=== PATIENT | male | born 1930 | race Caucasian/White ===

== ENCOUNTER → 2016-07-19 | Outpatient (CLI) | payer MEDICARE, BC ==
[~2016-07-19] MED LIST: ASPI-676; ATOR10TA23; CALC-600; LISI-523; METF500T4; PANT20TA2
--- NOTE | 2016-07-19 16:38 | RADRPT ---
PROCEDURE: US Lower extremity Venous. CLINICAL INDICATION: Right lower extremity swelling TECHNIQUE: Multiple sonographic images of the bilateral lower extremity deep venous system was obt ained utilizing grayscale, color-flow, compressive sonography and doppler imaging with augmentation. COMPARISON: None. FINDINGS: There is normal compressibility / flow within the bilateral common femoral, femoral and popliteal ve ins. The visualized deep veins of the calf are unremarkable. RPTAT:HJJR IMPRESSION: No sonographic evidence for deep venous thrombosis of either lower extremity. Physician Arlette Date Time Electronically viewed and signed by Physician Arlette on 07/19/2016 16:37 /
== END | disposition home or self-care (01) ==
LOC: VAS 10:50
PROVIDERS: ATTEND Internal Medicine
DX: R60.0 Localized edema (principal)
CPT/HCPCS: 93970

== ENCOUNTER 2016-11-28 20:17 | Inpatient (IN) | payer MEDICARE, BC ==
[~2016-11-28] VITALS: Ht 167.6 cm; Wt 78.3 kg
[2016-11-28] MEDS ORDERED: DIPHTH/TET/ACEL PERTUSS (ADULT) 0.5 ML VIAL IM* ONE (20:30)
--- NOTE | 2016-11-28 21:40 | RADRPT ---
PROCEDURE: CT Brain without contrast. CLINICAL INDICATION: Fall. Laceration. TECHNIQUE: A multiplanar CT of the brain was performed on a CT scanner utilizing axial imaging fro m the skull base through the vertex without IV contrast. The CTDIvol is 44.46 mGy and the DLP is 72 0.23 mGycm. One or more of the following dose reduction techniques were utilized: Automated exposu re control, adjustment of the mA and/or kV according to patient size, use of iterative reconstructio n technique. COMPARISON: CT brain 04/24/12 FINDINGS: Subarachnoid blood interdigitating within the right precentral sulcus and inferiorly along the front al operculum compatible with recent trauma. Moderate to large right parietal occipital scalp hemato ma and skin laceration. No evidence of acute subdural hematoma. 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 No calvarial fracture. Patchy periventricular of the hypo attenuation compatible with sequelae of chronic microvascular isc hemic injury. Focal parietal atrophy bilaterally right greater than left. Mild generalized volume loss. The basal cisterns, posterior fossa contents, brainstem, craniocervical junction, orbits, pituitary axis, paranasal sinuses, mastoid air cells, and calvarium are unremarkable. IMPRESSION: 1. Subarachnoid blood in the jejunum within the right precentral sulcus and inferiorly along the ri ght frontal operculum compatible with recent trauma. No acute subdural hematoma or parenchymal cont usion. No underlying calvarial fracture. 2. Prominent CSF space of the right the cerebellar hemisphere most compatible with the chronic subd ural hematoma/hygroma or arachnoid cyst. 3. Bilateral focal parietal atrophy with generalized volume loss. Results were discussed with Angelique Bolivar 11/28/2016 9:36:01 PM . RPTAT:AAJJ Physician Cierra Date Time Electronically viewed and signed by Physician Cierra on 11/28/2016 21:39 ASHISH/
[2016-11-28] MEDS ORDERED: IOHEXOL 100 ML ONE (22:03)
[2016-11-28] MEDS ORDERED: SOD CHLORIDE 0.9% 100 ML ONE (22:03)
[2016-11-28] MEDS ORDERED: METF500T4 PO (22:08)
[2016-11-28] MEDS ORDERED: AMLO2.5T78 PO (22:09)
--- NOTE | 2016-11-28 22:09 | RADRPT ---
PROCEDURE: XR Hip. CLINICAL INDICATION: Left hip pain. TECHNIQUE: AP and frog lateral views of the left hip were performed. COMPARISON: None. FINDINGS: There is normal mineralization and alignment. No fracture or osseous lesion is identified. There are normal joints without evidence of arthritis or effusion. Enthesopathic changes at the superior ante rior iliac crest, the inferior pubic rami, and at the inferior greater trochanter. The soft tissues are unremarkable. IMPRESSION: No acute fracture. RPTAT: UU Physician Jessie Date Time Electronically viewed and signed by Physician Jessie on 11/28/2016 22:09 RS/
[2016-11-28] MEDS ORDERED: PANT40TA4 PO (22:10)
[2016-11-28] MEDS ORDERED: ATOR10TA65 PO (22:10)
[2016-11-28] MEDS ORDERED: LOSA100T7 PO (22:10)
[2016-11-28] MEDS ORDERED: ASPI-664 PO (22:11)
[2016-11-28] MEDS ORDERED: FURO40TA4 PO (22:11)
[2016-11-28 22:23] LABS: WHITE BLOOD COUNT 12.1 10^3/ul (4.8-10.8)
[2016-11-28 22:24] LABS: BASOPHILS % 0.2 % (0.0-2.0); EOSINOPHILS % 0.2 % (0.0-7.0); HEMATOCRIT 38.8 % (42.0-52.0); HEMOGLOBIN 12.9 g/dl (14.0-18.0); LYMPHOCYTES # 0.7 10^3/ul (0.8-2.9); LYMPHOCYTES % 5.4 % (15.0-51.0); MEAN CORPUSCULAR HEMOGLOBIN 28.7 pg (29.0-33.0); MEAN CORPUSCULAR HGB CONC 33.2 g/dl (32.0-37.0); MEAN CORPUSCULAR VOLUME 86.4 fl (82.0-101.0); MEAN PLATELET VOLUME 11.2 fl (7.4-10.4); MONOCYTE # 0.6 10^3/ul (0.3-0.9); MONOCYTES % 5.3 % (0.0-11.0); NEUTROPHIL # 10.7 10^3/ul (1.6-7.5); NEUTROPHILS % 88.2 % (39.0-77.0); PLATELET COUNT 132 10^3/UL (140-415); POSITIVE DIFF @See below; RED BLOOD COUNT 4.49 10^6/ul (4.70-6.10); RED CELL DISTRIBUTION WIDTH 13.5 % (11.5-14.5)
[2016-11-28] MEDS ORDERED: ACETAMINOPHEN 325 MG TAB PO PRN (22:30)
[2016-11-28] MEDS ORDERED: ONDANSETRON 4 MG INJ IV PRN (22:30)
[2016-11-28 22:37] LABS: INR 1.03; PROTIME 13.5 Sec (12.2-14.2); PT RATIO 1.1
[2016-11-28 22:38] LABS: PARTIAL THROMBOPLASTIN TIME 31.3 Sec (25.0-35.0)
--- NOTE | 2016-11-28 22:39 | ERA ---
ER Documentation Chief Complaint Date/Time DATE: 11/28/16 TIME: 22:34 Chief Complaint glf; head lac; no ko; HPI This is an 86-year-old male who presents to the emergency room after being brought in by EMS for a ground-level fall. The patient states that he was walking up the steps to his home and he lost his balance and fell backwards. The patient states that he fell down 3 steps and did hit his head on the ground and on the fence leading to his status. He denies any loss of consciousness. He does state that he was bleeding from the right side of his head and does state that he takes a baby aspirin a day. The patient denies any numbness or tingling or any pain in his neck. The patient came to the ER today for evaluation. ROS All systems reviewed and are negative except as per history of present illness. Medications Home Meds Reported Medications Aspirin* (Aspirin* EC) 81 Mg Tablet., 81 MG PO DAILY, TAB 11/28/16 Furosemide* (Furosemide*) 40 Mg Tablet, 40 MG PO DAILY, TAB 11/28/16 Losartan Potassium* (Losartan Potassium*) 100 Mg Tablet, 100 MG PO DAILY, TAB 11/28/16 Atorvastatin Calcium (Atorvastatin Calcium) 10 Mg Tablet, 10 MG PO QHS, #30 TAB 11/28/16 Pantoprazole* (Pantoprazole*) 40 Mg Tablet., 40 MG PO DAILY, TAB 11/28/16 Amlodipine Besylate* (Amlodipine Besylate*) 2.5 Mg Tablet, 2.5 MG PO DAILY, #30 TAB 11/28/16 Metformin Hcl* (Metformin Hcl*) 500 Mg Tablet, 500 MG PO WITH MEALS BEDTIME, # 120 TAB qid 11/28/16 Discontinued Reported Medications Calcium (Calcium) 500 Mg Tablet 04/24/12 Aspirin (Kaley Child) 81 Mg Chew 04/24/12 Pantoprazole* (Protonix*) 20 Mg Tablet. 04/24/12 Atorvastatin (Lipitor) 10 Mg Tablet 04/24/12 Metformin* (Glucophage*) 500 Mg Tab 04/24/12 Lisinopril* (Zestril*) 5 Mg Tablet 04/24/12 Allergies Allergies: Coded Allergies: erythromycin base (Verified Allergy, Mild, 11/28/16) morphine (Verified Allergy, Mild, 7/27/17) PMhx/Soc History of Surgery: Yes (Prostate. Cataract, tonsillitis) Anesthesia Reaction: No Hx Neurological Disorder: No Hx Respiratory Disorders: No Hx Cardiac Disorders: No Hx Psychiatric Problems: No Hx Miscellaneous Medical Probl: Yes (HTN, Diabetes) Hx Alcohol Use: No Hx Substance Use: No Hx Tobacco Use: No Smoking Status: Never smoker Physical Exam Vitals Vital Signs Date Time Temp Pulse Resp B/P Pulse Ox O2 Delivery O2 Flow Rate FiO2 11/28/16 22:17 Nasal Cannula 2 11/28/16 21:57 71 18 165/77 97 Room Air 11/28/16 20:25 97.6 88 18 182/93 99 Physical Exam INITIAL VITAL SIGNS: Reviewed by me GENERAL: The patient is well developed and appropriate for usual state of health in no apparent distress HEENT: Right temporal laceration 2 cm in length, no depressed skull fracture, pupils equal, round, and reactive to light. EOMI. There is no scleral icterus. NECK: C-spine is soft and supple, there is no meningismus. There is no cervical lymphadenopathy. LUNGS: Clear to auscultation bilaterally. There are no rales, wheezes or rhonchi. HEART: Regular rate and rhythm, no murmurs, clicks, rubs or gallops. ABDOMEN: Soft, non-tender, non-distended. There are bowel sounds in all four quadrants. No rebound or guarding. EXTREMITIES: There is no peripheral cyanosis or edema. No focal swelling or erythema. NEUROLOGICAL: The patient moves all four extremities with 5/5 strength. Cranial nerves II - XII are intact. Normal gait. Alert and oriented to person place and time, no focal neurological deficits SKIN: There is no apparent rash or petechiae. Muscular skeletal: Tender to palpation over the left ASIS, no shortening of the lower externally HEME/LYMPHATIC: There is no evidence of excessive bruising or lymphedema. PSYCHIATRIC: The patient does not appear anxious or depressed. Result Diagram: 11/28/16 2200 Results 24 hrs Laboratory Tests Test 11/28/16 22:00 White Blood Count 12.110^3/ul Red Blood Count 4.4910^6/ul Hemoglobin 12.9g/dl Hematocrit 38.8% Mean Corpuscular Volume 86.4fl Mean Corpuscular Hemoglobin 28.7pg Mean Corpuscular Hemoglobin Concent 33.2g/dl Red Cell Distribution Width 13.5% Platelet Count 12640^3/UL Mean Platelet Volume 11.2fl Neutrophils % 88.2% Lymphocytes % 5.4% Monocytes % 5.3% Eosinophils % 0.2% Basophils % 0.2% Nucleated Red Blood Cells % 0.0/100WBC Neutrophils # 10.710^3/ul Lymphocytes # 0.710^3/ul Monocytes # 0.610^3/ul Eosinophils # 0.010^3/ul Basophils # 0.010^3/ul Nucleated Red Blood Cells # 0.010^3/ul Current Medications Medications (Trade) Dose Ordered Sig/Sera Route PRN Reason Start Time Stop Time Status Last Admin Dose Admin Diphtheria/ Tetanus/Acell Pertussis (Adacel) 0.5 ml ONCE ONCE IM* 11/28/16 20:30 11/28/16 20:31 DC 11/28/16 20:49 IV Flush 10 ml 10 ml STK-MED ONCE .ROUTE 11/28/16 22:03 11/28/16 22:04 DC Sodium Chloride 100 ml @ ud STK-MED ONCE .ROUTE 11/28/16 22:03 11/28/16 22:04 DC Iohexol (Omnipaque) 100 ml @ ud STK-MED ONCE .ROUTE 11/28/16 22:03 11/28/16 22:04 DC Ondansetron HCl (Zofran Inj) 4 mg ER BRIDGE PRN IV NAUSEA AND/OR VOMITING 11/28/16 22:30 11/29/16 22:29 Acetaminophen (Tylenol Tab) 650 mg ER BRIDGE PRN PO MILD PAIN/FEVER 11/28/16 22:30 11/29/16 22:29 Procedures/MDM EKG: Rate/Rhythm: [Normal Sinus Rhythm] QRS, ST, T-waves: [No changes consistent w/ acute ischemia] Impression: [No evidence of ischemia or arrhythmia] Chest X-ray 1V Interpreted by me: Soft Tissue: No acute abnormalities Bones: No acute abnormalities Mediastinum/Cardiac Silhouette/Lungs: [No acute abnormalities] X-ray Hip 2V Interpreted by me: Bones: [No fracture] Joints: [No dislocation] Foreign body: [None] CT brain: 1. Subarachnoid blood in the jejunum within the right precentral sulcus and inferiorly along the right frontal operculum compatible with recent trauma. No acute subdural hematoma or parenchymal contusion. No underlying calvarial fracture. 2. Prominent CSF space of the right the cerebellar hemisphere most compatible with the chronic subdural hematoma/hygroma or arachnoid cyst. 3. Bilateral focal parietal atrophy with generalized volume loss. CTA brain: Pending This is an 86-year-old male who presents to the emergency room for evaluation of a scalp laceration after a fall down 3 steps at home. There was no loss of consciousness. The patient did have a 2 cm laceration over the right temporal region of his scalp. The patient did undergo a CT of the brain which demonstrated a right-sided traumatic subarachnoid hemorrhage. This patient is neurologically intact. He has no focal neurological deficits. I did consult our neurosurgeon stream control officer nick, Dr. Montano who states to obtain a CT angiography of the brain. He states that he will evaluate this patient and there is no need for emergent intervention at this time however he would like the results of the CTA. I have contacted this patient's primary care physician , Dr. Segura and I have presented this case to him. He is in agreement with the plan for admission at this time and would also like to be notified of the CTA brain results. The patient and the patient's family members were at bedside are aware of this patient's CT results. This patient will be placed in for admission at this time on the telemetry floor pending the results of his CTA. Results of the CTA will be signed out to oncoming physician Dr. crow. Critical Care: Excluding all billable procedures Time: 39 minutes Treatments/Evaluations: Close monitoring and treatment of unstable vital signs, cardiorespiratory, and neurologic status, while maintaining tight balance of fluid, respiratory, and cardiac interventions. Departure Diagnosis: Primary Impression: Traumatic subarachnoid hemorrhage Additional Impressions: Fall with significant injury Scalp laceration Condition: Serious GUEROJAYLON GARAYKIMBERLY DO Nov 28, 2016 22:39
[2016-11-28 22:48] LABS: CALCIUM 9.9 mg/dl (8.4-10.2); CREATININE 1.01 mg/dl (0.61-1.24); POTASSIUM 4.2 mmol/L (3.5-5.1)
[2016-11-28 22:59] LABS: TROPONIN-I 0.054 ng/ml (0.00-0.12)
--- NOTE | 2016-11-28 23:04 | RADRPT ---
PROCEDURE: XR Chest. CLINICAL INDICATION: Chest pain. TECHNIQUE: Single frontal chest x-ray. COMPARISON: None. FINDINGS: The cardiomediastinal silhouette is unremarkable. There is no congestive heart failure.. No focal i nfiltrate is seen. There is no pleural effusion. There is no pneumothorax. The osseous structures are unremarkable. IMPRESSION: 1. No active disease. RPTAT: HMVK .Brodie Prince MD, MD Date Time Electronically viewed and signed by .Brodie Prince MD, MD on 11/28/2016 23:04 .K/
--- NOTE | 2016-11-28 23:11 | RADRPT ---
PROCEDURE: CT Angio Brain with IV contrast. CLINICAL INDICATION: Trauma. Subarachnoid hemorrhage. TECHNIQUE: CT angiography of the head was performed. High resolution serial axial CT images of t he head were obtained after the administration of 90 cc Omnipaque-300 50 IV contrast material. 3D, s agittal and coronal reconstruction images were produced. Exam CTDlvol = 100 mGy and DLP = 759 mGy- cm. One of the following 3 dose reduction techniques were used: Automated exposure control; adjustme nt of the mA and/or kV according to patient size; or use of iterative reconstruction technique. COMPARISON: CT brain 11/28/2016 FINDINGS: There is a dominant right vertebral artery. Basilar artery is normal in appearance. There is a hyp oplastic P1 segment of the left posterior cerebral artery. There is a prominent left posterior comm unicating arteries supplying the remainder of the left posterior cerebral artery. Remainder of the posterior circulation is patent. There is minimal atherosclerotic plaque in the bilateral cavernous internal carotid arteries without hemodynamically significant stenosis. There is no definite aneury sm or vascular malformation is identified. There is no intraluminal filling defect. There is no abn ormal brain parenchymal enhancement. IMPRESSION: 1. No aneurysm or vascular malformation identified. 2. No hemodynamically significant intracranial stenosis or occlusion. 3. Hypoplastic P1 segment left posterior cerebral artery. Remainder of the left posterior cerebral arteries supplied by patent left posterior communicating artery. 4. Minimal atherosclerotic plaque bilateral cavernous internal carotid arteries without hemodynamic ally significant. RPTAT: HMVK .Brodie Prince MD, MD Date Time Electronically viewed and signed by .Brodie Prince MD, MD on 11/28/2016 23:11 .K/
[2016-11-29] VITALS (12 sets, daily range): BP systolic 99–198; BP diastolic 53–90; PULSE 50–75; RESP 15–20; Ht 167.6 cm; Wt 78.3 kg
--- NOTE | 2016-11-29 00:04 | RADRPT ---
PROCEDURE: CT cervical spine without contrast. CLINICAL INDICATION: Trauma, neck pain. TECHNIQUE: A CT of the cervical spine was performed without intravenous contrast. Coronal and sag ittal reformats were generated. CTDIvol: 22.29 mGy. DLP: 530.64 mGy-cm. One or more of the following dose reduction techniques were used: - Automated exposure control. - Adjustment of the mA and/or kV according to patient size. - Use of iterative reconstruction technique. COMPARISON: None. FINDINGS: There is a normal cervical lordosis. No spondylolisthesis is seen. The vertebral body heights are m aintained. No fracture or subluxation is seen. 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 The prevertebral soft tissues are normal. There severe neural foraminal narrowings on the left at C2-C3 and bilaterally at C3-C4. Moderate bi lateral neural foraminal narrowings are noted at C4-C5 and C5-C6. There is mild spinal canal stenosis at C2-C3 and C5-C6. Moderate spinal canal stenosis is noted at C3-C4 and C4-C5. Mild to moderate facet arthrosis is noted at C2-C3 and C3-C4. The soft tissue structures of the neck are unremarkable. IMPRESSION: 1. No fracture or subluxation of the cervical spine. 2. Mild spinal canal stenosis at C2-C3 and C5-C6, and moderate spinal canal stenosis at C3-C4 and C 4-C5. 3. Severe neural foraminal narrowings on the left at C2-C3 and bilaterally at C3-C4, and moderate n eural foraminal narrowings bilaterally at C4-C5 and C5-C6. RPTAT: HTAR .Juan J Correia MD, Date Time Electronically viewed and signed by .Juan J Correia MD, on 11/29/2016 00:04 .R/
[2016-11-29] MEDS: SOD CHLORIDE 0.45% 1,000 ML IV SCH ×2 (01:15→01:50)
[2016-11-29] MEDS ORDERED: GLUCOSE GEL 15 GRAM TUBE BUCCAL PRN (01:20)
[2016-11-29] MEDS ORDERED: DEXTROSE 50% 50 ML SYRINGE IV PRN ×2 (01:20)
[2016-11-29] MEDS ORDERED: GLUCAGON 1 MG INJ IM PRN (01:20)
[2016-11-29] MEDS ORDERED: GLUCOSE GEL 15 GRAM TUBE PO PRN ×2 (01:20)
--- NOTE | 2016-11-29 01:39 | RADRPT ---
PROCEDURE: XR Hip. CLINICAL INDICATION: Fall with hematoma over the right hip. TECHNIQUE: Single AP view of the right hip is performed. COMPARISON: None. FINDINGS: There is normal mineralization and alignment. No fracture or osseous lesion is identified. There are normal joints without evidence of arthritis or effusion. Soft tissue swelling over the right hip re presents hematoma in setting of trauma. IMPRESSION: Soft tissue swelling representing hematoma over the right hip, without acute fracture. RPTAT: UU. Physician Jessie Date Time Electronically viewed and signed by Physician Jessie on 11/29/2016 01:39 RS/
[2016-11-29] MEDS: ACCU-CHEK XX SCH (01:50)
[2016-11-29] MEDS ORDERED: ACCU-CHEK XX SCH (02:00)
[2016-11-29 04:44] LABS: CK-MB 6.78 ng/ml (0.0-2.4)
[2016-11-29 04:45] LABS: TROPONIN-I 0.226 ng/ml (0.00-0.12)
--- NOTE | 2016-11-29 08:57 | PN ---
Date/Time of Note Date/Time of Note DATE: 11/29/16 TIME: 08:52 Assessment/Plan VTE Prophylaxis VTE Prophylaxis Intervention: contraindicated (sah) Lines/Catheters IV Catheter Type (from Nrsg): Peripheral IV Urinary Cath still in place: No Subjective 24 Hr Interval Summary Free Text/Dictation 86 yr old man lives at home, prior hx falls fell in house on a step, hit post rt head, neck and rt leg. to er with scalp laceration, not bleeding, ct w subarachnoid blood no sdh, no anedurysm by ct angio neurosurgeon consulted by phone will see today at no time loc or change in neuro status this am alert and fluet, no focal neuro deficit appreciated. big hematoma rt hip, no fx on xray hx of dm on oral agents with good control, hbp, and fall risk plan: start pt and see how he does check labs this am before restart metformin Exam/Review of Systems Vital Signs Vitals Vital Signs Date Time Temp Pulse Resp B/P Pulse Ox O2 Delivery O2 Flow Rate FiO2 11/29/16 08:22 56 11/29/16 07:41 98.2 18 124/60 98 11/29/16 00:32 Room Air 11/29/16 00:30 2.0 Intake and Output 11/28/16 11/28/16 11/29/16 15:00 23:00 07:00 Intake Total 345 ml Output Total 800 ml Balance -455 ml Results Result Diagram: 11/28/16 2200 11/28/16 2200 Results 24 hrs Laboratory Tests Test 11/28/16 22:00 11/28/16 22:51 11/29/16 03:57 11/29/16 08:37 White Blood Count 12.1 H Red Blood Count 4.49 L Hemoglobin 12.9 L Hematocrit 38.8 L Mean Corpuscular Volume 86.4 Mean Corpuscular Hemoglobin 28.7 L Mean Corpuscular Hemoglobin Concent 33.2 Red Cell Distribution Width 13.5 Platelet Count 132 L Mean Platelet Volume 11.2 H Neutrophils % 88.2 H Lymphocytes % 5.4 L Monocytes % 5.3 Eosinophils % 0.2 Basophils % 0.2 Nucleated Red Blood Cells % 0.0 Neutrophils # 10.7 H Lymphocytes # 0.7 L Monocytes # 0.6 Eosinophils # 0.0 Basophils # 0.0 Nucleated Red Blood Cells # 0.0 Prothrombin Time 13.5 Prothrombin Time Ratio 1.1 INR International Normalized Ratio 1.03 Activated Partial Thromboplast Time 31.3 Sodium Level 138 Potassium Level 4.2 Chloride Level 97 Carbon Dioxide Level 30 Anion Gap 15 Blood Urea Nitrogen 19 Creatinine 1.01 Glucose Level 135 Calcium Level 9.9 Troponin I 0.054 0.226 *H Bedside Glucose 133 160 Creatine Kinase 473 H Creatine Kinase Index 1.4 Creatinine Kinase MB (Mass) 6.78 H Medications Medications Current Medications Clonidine 0.1 mg 0.1 mg Q4H PRN PO ELEVATED SYSTOLIC BP; Start 11/29/16 at 01: 00 Sodium Chloride (1/2 NS) 1,000 ml @ 75 mls/hr [id number] IV Last administered on 11/29/16t 01:50; Admin Dose 75 MLS/HR; Start 11/29/16 at 01:15 Diagnostic Test (Pha) (Accu-Chek) 1 ea 02 XX ; Start 11/29/16 at 02:00 Miscellaneous Information 1 ea NOTE XX ; Start 11/29/16 at 01:20 Glucose (Glutose) 15 gm Q15M PRN PO DECREASED GLUCOSE; Start 11/29/16 at 01:20 Glucose (Glutose) 22.5 gm Q15M PRN PO DECREASED GLUCOSE; Start 11/29/16 at 01: 20 Dextrose (D50w Syringe) 25 ml Q15M PRN IV DECREASED GLUCOSE; Start 11/29/16 at 01:20 Dextrose (D50w Syringe) 50 ml Q15M PRN IV DECREASED GLUCOSE; Start 11/29/16 at 01:20 Glucagon (Glucagen) 1 mg Q15M PRN IM DECREASED GLUCOSE; Start 11/29/16 at 01:20 Glucose (Glutose) 15 gm Q15M PRN BUCCAL DECREASED GLUCOSE; Start 11/29/16 at 01 :20 Amlodipine Besylate (Norvasc) 2.5 mg DAILY PO ; Start 11/29/16 at 09:00 Atorvastatin Calcium (Lipitor) 10 mg HS PO ; Start 11/29/16 at 21:00 Furosemide (Lasix) 40 mg DAILY@06 PO ; Start 11/29/16 at 08:00 Pantoprazole (Protonix Tab) 40 mg DAILY@06 PO ; Start 11/29/16 at 08:00 BERE MARTINEZ MD Nov 29, 2016 08:57
[2016-11-29] MEDS: AMLODIPINE 2.5 MG TAB PO SCH ×2 (09:00→09:32)
[2016-11-29] MEDS: FUROSEMIDE 40 MG TAB PO SCH (09:32)
[2016-11-29] MEDS: PANTOPRAZOLE (EC) 40 MG TAB PO SCH (09:32)
[2016-11-29] MEDS: INSULIN ASPART [NOVOLOG] 3 ML PEN SC SCH ×4 (09:35→21:00)
[2016-11-29 09:52] LABS: BASOPHILS % 0.2 % (0.0-2.0); EOSINOPHILS % 0.2 % (0.0-7.0); HEMATOCRIT 33.4 % (42.0-52.0); HEMOGLOBIN 11.4 g/dl (14.0-18.0); LYMPHOCYTES # 0.7 10^3/ul (0.8-2.9); LYMPHOCYTES % 11.8 % (15.0-51.0); MEAN CORPUSCULAR HEMOGLOBIN 29.5 pg (29.0-33.0); MEAN CORPUSCULAR HGB CONC 34.1 g/dl (32.0-37.0); MEAN CORPUSCULAR VOLUME 86.3 fl (82.0-101.0); MEAN PLATELET VOLUME 11.5 fl (7.4-10.4); MONOCYTE # 0.6 10^3/ul (0.3-0.9); MONOCYTES % 9.8 % (0.0-11.0); NEUTROPHIL # 4.8 10^3/ul (1.6-7.5); NEUTROPHILS % 77.5 % (39.0-77.0); PLATELET COUNT 142 10^3/UL (140-415); RED BLOOD COUNT 3.87 10^6/ul (4.70-6.10); RED CELL DISTRIBUTION WIDTH 13.4 % (11.5-14.5); WHITE BLOOD COUNT 6.2 10^3/ul (4.8-10.8)
[2016-11-29 10:20] LABS: CREATININE 0.89 mg/dl (0.61-1.24); POTASSIUM 4.1 mmol/L (3.5-5.1)
[2016-11-29 10:28] LABS: CK-MB 5.75 ng/ml (0.0-2.4); TROPONIN-I 0.159 ng/ml (0.00-0.12)
--- NOTE | 2016-11-29 12:28 | HP ---
DATE OF ADMISSION: 11/28/2016 CHIEF COMPLAINT: Fall with skull, scalp laceration, and subarachnoid bleed. HISTORY OF PRESENT ILLNESS: This is an 86-year-old male with history of diabetes, hypertension, hyperlipidemia, mild neuropathy who has had a history of several falls in the past. He was in his house doing some cleaning, walked up some steps and missed a step, he fell backwards striking the right side of his head with some bleeding. He came to the emergency room. He was found to have a minor scalp laceration, bleeding was controlled. CAT scan was performed revealing some subarachnoid blood without subdural hematoma. There was no loss of consciousness. In the emergency room there was no evidence of neurological deficits and that has persisted without any evidence of neurological deficit. Dr. Montano, neurosurgeon was contacted in the emergency room and a CT angiogram was performed at his request. No evidence for aneurysm or other evidence of bleeding or significant vascular episodes that are not appropriate for the patient's age. The patient was admitted to the hospital. PAST MEDICAL HISTORY: He has a history of diabetes for which he takes metformin. His hemoglobin A1c have consistently been less than 7. The metformin was held because of the angiogram. There is no evidence of renal disease or eye disease. He has hypertension, hyperlipidemia, and some intermittent gastrointestinal discomfort. The patient was hospitalized within the last year at [facility] following a fall at that time. There was transient elevation of his troponins and see by Cardiology who felt that there was no ischemic event present. On this admission again there was an elevation of troponin of unclear etiology. Recent echocardiogram reveals normal ejection fraction 55 percent and just minimal mitral insufficiency. Other medical problems include prostatic hypertrophy with mild symptoms. HABITS: Prior history of cigarettes, not for the last many years. He does not drink alcohol. PAST SURGICAL HISTORY: Cataract surgery, transurethral prostatectomy, and tonsillectomy. REVIEW OF SYSTEMS: HEENT: He does require glasses. GASTROINTESTINAL: Asymptomatic. GENITOURINARY: Some nocturia. EXTREMITIES: No other joints are bothering the patient at the present time. PHYSICAL EXAMINATION: GENERAL APPEARANCE: Reveals a pleasant gentleman living in bed. His head is wrapped. VITAL SIGNS: Blood pressure 124/80 currently, pulse is 60. He is afebrile. Pulse is varying between 54 and 56. He did have 1 dose of clonidine for somewhat elevated blood pressure. HEENT: The bandage is removed from the head. There is a 1 to 1.5 inch linear laceration along to the right parietal scalp without bleeding or separation. Pupils are round and reactive. Extraocular muscle movements are intact. There is no evidence of visual impairment. Mouth is unremarkable. Tongue is midline. NECK: Supple. CHEST: Clear. HEART: Heart tones regular. ABDOMEN: Soft. GENITOURINARY: Genitalia unremarkable. EXTREMITIES: No clubbing, cyanosis, or edema. Some reduction in his palpable peripheral pulses in the feet. NEUROLOGIC: No focal abnormality is noted. IMPRESSION: 1. Ground level fall with head trauma and subarachnoid bleed of minor degree for neurosurgical reevaluation and appropriate followup. To remain off aspirin and other anticoagulants at the present time. 2. Diabetes mellitus. 3. Hypertension. 4. Benign prostatic hypertrophy (BPH) with mild lower urinary tract symptoms post prostatectomy. 5. Abnormal troponin level. PLAN: We will get cardiologic evaluation. Overall the patient will be seen by physical therapy, ambulation will be instituted and further hospitalization per his recovery. Dictated By: Bruno Segura MD /kevin/brian /Document#: [id number]
[2016-11-29] MEDS ORDERED: KET2CR15 TOP (13:37)
[2016-11-29] MEDS ORDERED: LOPE1TAB PO (13:37)
[2016-11-29] MEDS ORDERED: MOME45OI9 TOP (13:37)
[2016-11-29] MEDS ORDERED: UDROBDM PO (13:37)
[2016-11-29] MEDS ORDERED: PROP30DR BOTH EYES (13:37)
--- NOTE | 2016-11-29 15:55 | PN ---
Date/Time of Note Date/Time of Note DATE: 11/29/16 TIME: 15:53 Assessment/Plan VTE Prophylaxis VTE Prophylaxis Intervention: contraindicated (sah) Lines/Catheters IV Catheter Type (from Nrs): Peripheral IV Urinary Cath still in place: No Subjective 24 Hr Interval Summary Free Text/Dictation follow up neuro status remains normal, await neurosurg re further orders if any still not seen by pt, may need to wait till tomorrow note elevation of troponin...pt on floor more than 40 min w elevation of cpk, this has occdured after previous fall without evidence for acute ischemic event , cardiology called for consultation Exam/Review of Systems Vital Signs Vitals Vital Signs Date Time Temp Pulse Resp B/P Pulse Ox O2 Delivery O2 Flow Rate FiO2 11/29/16 15:20 98.0 65 18 176/74 99 11/29/16 08:45 Nasal Cannula 2.0 Intake and Output 11/28/16 11/28/16 11/29/16 15:00 23:00 07:00 Intake Total 345 ml Output Total 800 ml Balance -455 ml Results Result Diagram: 11/29/16 0934 11/29/16 0934 Results 24 hrs Laboratory Tests Test 11/28/16 22:00 11/28/16 22:51 11/29/16 03:57 11/29/16 08:37 White Blood Count 12.1 H Red Blood Count 4.49 L Hemoglobin 12.9 L Hematocrit 38.8 L Mean Corpuscular Volume 86.4 Mean Corpuscular Hemoglobin 28.7 L Mean Corpuscular Hemoglobin Concent 33.2 Red Cell Distribution Width 13.5 Platelet Count 132 L Mean Platelet Volume 11.2 H Neutrophils % 88.2 H Lymphocytes % 5.4 L Monocytes % 5.3 Eosinophils % 0.2 Basophils % 0.2 Nucleated Red Blood Cells % 0.0 Neutrophils # 10.7 H Lymphocytes # 0.7 L Monocytes # 0.6 Eosinophils # 0.0 Basophils # 0.0 Nucleated Red Blood Cells # 0.0 Prothrombin Time 13.5 Prothrombin Time Ratio 1.1 INR International Normalized Ratio 1.03 Activated Partial Thromboplast Time 31.3 Sodium Level 138 Potassium Level 4.2 Chloride Level 97 Carbon Dioxide Level 30 Anion Gap 15 Blood Urea Nitrogen 19 Creatinine 1.01 Glucose Level 135 Calcium Level 9.9 Troponin I 0.054 0.226 *H Bedside Glucose 133 160 Creatine Kinase 473 H Creatine Kinase Index 1.4 Creatinine Kinase MB (Mass) 6.78 H Test 11/29/16 09:34 11/29/16 12:15 White Blood Count 6.2 # Red Blood Count 3.87 L Hemoglobin 11.4 L Hematocrit 33.4 L Mean Corpuscular Volume 86.3 Mean Corpuscular Hemoglobin 29.5 Mean Corpuscular Hemoglobin Concent 34.1 Red Cell Distribution Width 13.4 Platelet Count 142 Mean Platelet Volume 11.5 H Neutrophils % 77.5 H Lymphocytes % 11.8 L Monocytes % 9.8 Eosinophils % 0.2 Basophils % 0.2 Nucleated Red Blood Cells % 0.0 Neutrophils # 4.8 Lymphocytes # 0.7 L Monocytes # 0.6 Eosinophils # 0.0 Basophils # 0.0 Nucleated Red Blood Cells # 0.0 Sodium Level 136 Potassium Level 4.1 Chloride Level 97 Carbon Dioxide Level 28 Anion Gap 15 Blood Urea Nitrogen 17 Creatinine 0.89 Glucose Level 180 Calcium Level 9.0 Creatine Kinase 445 H Creatine Kinase Index 1.3 Creatinine Kinase MB (Mass) 5.75 H Troponin I 0.159 *H Bedside Glucose 161 Medications Medications Current Medications Clonidine 0.1 mg 0.1 mg Q4H PRN PO ELEVATED SYSTOLIC BP; Start 11/29/16 at 01: 00 Sodium Chloride (1/2 NS) 1,000 ml @ 75 mls/hr [id number] IV Last administered on 11/29/16t 01:50; Admin Dose 75 MLS/HR; Start 11/29/16 at 01:15 Diagnostic Test (Pha) (Accu-Chek) 1 ea 02 XX ; Start 11/29/16 at 02:00 Miscellaneous Information 1 ea NOTE XX ; Start 11/29/16 at 01:20 Glucose (Glutose) 15 gm Q15M PRN PO DECREASED GLUCOSE; Start 11/29/16 at 01:20 Glucose (Glutose) 22.5 gm Q15M PRN PO DECREASED GLUCOSE; Start 11/29/16 at 01: 20 Dextrose (D50w Syringe) 25 ml Q15M PRN IV DECREASED GLUCOSE; Start 11/29/16 at 01:20 Dextrose (D50w Syringe) 50 ml Q15M PRN IV DECREASED GLUCOSE; Start 11/29/16 at 01:20 Glucagon (Glucagen) 1 mg Q15M PRN IM DECREASED GLUCOSE; Start 11/29/16 at 01:20 Glucose (Glutose) 15 gm Q15M PRN BUCCAL DECREASED GLUCOSE; Start 11/29/16 at 01 :20 Amlodipine Besylate (Norvasc) 2.5 mg DAILY PO ; Start 11/29/16 at 09:00 Atorvastatin Calcium (Lipitor) 10 mg HS PO ; Start 11/29/16 at 21:00 Furosemide (Lasix) 40 mg DAILY@06 PO Last administered on 11/29/16 09:32; Admin Dose 40 MG; Start 11/29/16 at 08:00 Pantoprazole (Protonix Tab) 40 mg DAILY@06 PO Last administered on 11/29/16 09 :32; Admin Dose 40 MG; Start 11/29/16 at 08:00 BERE MARTINEZ MD Nov 29, 2016 15:55
[2016-11-29] MEDS ORDERED: PROPYLENE GLYCOL/PEG 15 ML OPH BOTH EYES PRN ×2 (16:00→16:46)
[2016-11-29] MEDS ORDERED: GUAIFENESIN/DM 5ML CUP PO PRN (16:00)
--- NOTE | 2016-11-29 16:16 | CONS ---
Date/Time of Note Date/Time of Note DATE: 11/29/16 TIME: 16:10 Assessment/Plan Assessment/Plan Chief Complaint/Hosp Course 86 yowm w/ DM, htn, hld, and neuropathy who presents s/p a mechanical fall with a SAH. Called to see pt b/c mildly positive troponin (0.226 -> 0.159). ECG has no ischemic ST changes. Pt has no cp or sob. Do not suspect ACS. Troponin may be demand ischemia +/- autonomic dysregulation form his SAH. Would treat supportively (manage BP). Can check echo to evaluate EF and wall motion. (Stress test would not change person at this time. Pt is obviously not a candidate for DAPT.) Problems: Consultation Date/Type/Reason Admit Date/Time Nov 28, 2016 at 22:19 Date of Consultation: Nov 29, 2016 Type of Consultation: Cardiology Reason for Consultation + troponin Hx of Present Illness 86 yowm w/ DM, htn, hld, and neuropathy who presents s/p a mechanical fall with a SAH. Called to see pt b/c mildly positive troponin (0.226 -> 0.159). ECG revealed sinus rhythm w/o ST changes. Pt denies any cp or sob (before or after the fall). He notes having high blood pressure last night (up to 200 systolic) . He had another fall at [place] earlier this year. Also had positive troponins there. Had a stress test then, which was negative for ischemia. Social History Smoking Status: Never smoker Exam/Review of Systems Vital Signs Vitals Vital Signs Date Time Temp Pulse Resp B/P Pulse Ox O2 Delivery O2 Flow Rate FiO2 11/29/16 15:20 98.0 65 18 176/74 99 11/29/16 08:45 Nasal Cannula 2.0 Intake and Output 11/28/16 11/28/16 11/29/16 15:00 23:00 07:00 Intake Total 345 ml Output Total 800 ml Balance -455 ml Exam Constitutional: alert Respiratory: clear to auscultation Cardiovascular: regular rate and rhythm, No systolic murmur Extremities: No edema Results ECG 11-28-16 - nsr @ 76, nl axis/nl intervals, no pathologic Q, no ischemic ST changes 11-29-16 - sb @ 54, no ischemic ST changes, no Qs Result Diagram: 11/29/16 0934 11/29/16 0934 Results 24 hrs Laboratory Tests Test 11/28/16 22:00 11/28/16 22:51 11/29/16 03:57 11/29/16 08:37 White Blood Count 12.1 H Red Blood Count 4.49 L Hemoglobin 12.9 L Hematocrit 38.8 L Mean Corpuscular Volume 86.4 Mean Corpuscular Hemoglobin 28.7 L Mean Corpuscular Hemoglobin Concent 33.2 Red Cell Distribution Width 13.5 Platelet Count 132 L Mean Platelet Volume 11.2 H Neutrophils % 88.2 H Lymphocytes % 5.4 L Monocytes % 5.3 Eosinophils % 0.2 Basophils % 0.2 Nucleated Red Blood Cells % 0.0 Neutrophils # 10.7 H Lymphocytes # 0.7 L Monocytes # 0.6 Eosinophils # 0.0 Basophils # 0.0 Nucleated Red Blood Cells # 0.0 Prothrombin Time 13.5 Prothrombin Time Ratio 1.1 INR International Normalized Ratio 1.03 Activated Partial Thromboplast Time 31.3 Sodium Level 138 Potassium Level 4.2 Chloride Level 97 Carbon Dioxide Level 30 Anion Gap 15 Blood Urea Nitrogen 19 Creatinine 1.01 Glucose Level 135 Calcium Level 9.9 Troponin I 0.054 0.226 *H Bedside Glucose 133 160 Creatine Kinase 473 H Creatine Kinase Index 1.4 Creatinine Kinase MB (Mass) 6.78 H Test 11/29/16 09:34 11/29/16 12:15 White Blood Count 6.2 # Red Blood Count 3.87 L Hemoglobin 11.4 L Hematocrit 33.4 L Mean Corpuscular Volume 86.3 Mean Corpuscular Hemoglobin 29.5 Mean Corpuscular Hemoglobin Concent 34.1 Red Cell Distribution Width 13.4 Platelet Count 142 Mean Platelet Volume 11.5 H Neutrophils % 77.5 H Lymphocytes % 11.8 L Monocytes % 9.8 Eosinophils % 0.2 Basophils % 0.2 Nucleated Red Blood Cells % 0.0 Neutrophils # 4.8 Lymphocytes # 0.7 L Monocytes # 0.6 Eosinophils # 0.0 Basophils # 0.0 Nucleated Red Blood Cells # 0.0 Sodium Level 136 Potassium Level 4.1 Chloride Level 97 Carbon Dioxide Level 28 Anion Gap 15 Blood Urea Nitrogen 17 Creatinine 0.89 Glucose Level 180 Calcium Level 9.0 Creatine Kinase 445 H Creatine Kinase Index 1.3 Creatinine Kinase MB (Mass) 5.75 H Troponin I 0.159 *H Bedside Glucose 161 Medications Medications Current Medications Clonidine 0.1 mg 0.1 mg Q4H PRN PO ELEVATED SYSTOLIC BP; Start 11/29/16 at 01: 00 Sodium Chloride (1/2 NS) 1,000 ml @ 75 mls/hr [id number] IV Last administered on 11/29/16 01:50; Admin Dose 75 MLS/HR; Start 11/29/16 at 01:15 Diagnostic Test (Pha) (Accu-Chek) 1 ea 02 XX ; Start 11/29/16 at 02:00 Miscellaneous Information 1 ea NOTE XX ; Start 11/29/16 at 01:20 Glucose (Glutose) 15 gm Q15M PRN PO DECREASED GLUCOSE; Start 11/29/16 at 01:20 Glucose (Glutose) 22.5 gm Q15M PRN PO DECREASED GLUCOSE; Start 11/29/16 at 01: 20 Dextrose (D50w Syringe) 25 ml Q15M PRN IV DECREASED GLUCOSE; Start 11/29/16 at 01:20 Dextrose (D50w Syringe) 50 ml Q15M PRN IV DECREASED GLUCOSE; Start 11/29/16 at 01:20 Glucagon (Glucagen) 1 mg Q15M PRN IM DECREASED GLUCOSE; Start 11/29/16 at 01:20 Glucose (Glutose) 15 gm Q15M PRN BUCCAL DECREASED GLUCOSE; Start 11/29/16 at 01 :20 Amlodipine Besylate (Norvasc) 2.5 mg DAILY PO ; Start 11/29/16 at 09:00 Atorvastatin Calcium (Lipitor) 10 mg HS PO ; Start 11/29/16 at 21:00 Furosemide (Lasix) 40 mg DAILY@06 PO Last administered on 11/29/16 09:32; Admin Dose 40 MG; Start 11/29/16 at 08:00 Pantoprazole (Protonix Tab) 40 mg DAILY@06 PO Last administered on 11/29/16 09 :32; Admin Dose 40 MG; Start 11/29/16 at 08:00 Guaifenesin/ Dextromethorphan (Robitussin Dm Liquid Cup) 5 ml Q4H PRN PO COUGH ; Start 11/29/16 at 16:00 Losartan Potassium (Cozaar) 100 mg DAILY PO ; Start 11/30/16 at 09:00 Mometasone Furoate (Elocon 0.1 % Oint) 1 applic DAILY TOP ; Start 11/30/16 at 09 :00; Status UNV Polyethyl Glycol/ Propylene Glycol (Systane) 1 drop QID PRN BOTH EYES DRY EYES ; Start 11/29/16 at 16:00 MELISSA FENTON Nov 29, 2016 16:16
[2016-11-29] MEDS: metFORMIN 500 MG TAB PO SCH ×2 (18:00→21:27)
--- NOTE | 2016-11-29 19:06 | RADRPT ---
Vent Rate: 54 bpm RR Interval: 0 msec RI Interval: 168 msec QRS Duration: 80 msec QT Interval: 442 msec QTC Interval: 419 msec P-R-T [place]: 34 - 23 - 45 degrees Sinus bradycardia probably lead misplacement otherwise normal ECG Electronically Signed By: Luis Alfredo Umanzor [id number]
[2016-11-29] MEDS: ATORVASTATIN 10 MG TAB PO SCH (21:27)
[2016-11-30] VITALS (12 sets, daily range): BP systolic 111–165; BP diastolic 54–79; PULSE 53–60; RESP 15–20
[2016-11-30] MEDS: ACCU-CHEK XX SCH (02:00)
[2016-11-30] MEDS: SOD CHLORIDE 0.45% 1,000 ML IV SCH ×3 (03:34→12:55)
[2016-11-30] MEDS: PANTOPRAZOLE (EC) 40 MG TAB PO SCH (06:25)
[2016-11-30] MEDS: FUROSEMIDE 40 MG TAB PO SCH (06:25)
[2016-11-30] MEDS: metFORMIN 500 MG TAB PO SCH ×4 (08:08→20:42)
[2016-11-30] MEDS: LOSARTAN 50 MG TAB PO SCH (08:09)
[2016-11-30] MEDS: AMLODIPINE 2.5 MG TAB PO SCH (08:14)
[2016-11-30] MEDS: INSULIN ASPART [NOVOLOG] 3 ML PEN SC SCH ×4 (08:14→20:50)
[2016-11-30] MEDS ORDERED: FUROSEMIDE 40 MG TAB PO SCH (09:00)
[2016-11-30] MEDS: MOMETASONE 0.1% TOP SCH (09:00)
--- NOTE | 2016-11-30 15:11 | PN ---
Date/Time of Note Date/Time of Note DATE: 11/30/16 TIME: 14:57 Assessment/Plan VTE Prophylaxis VTE Prophylaxis Intervention: contraindicated VTE Contraindication Reason: bleeding Lines/Catheters IV Catheter Type (from Nrsg): Peripheral IV Urinary Cath still in place: No Assessment/Plan Problems: (1) Elevated troponin Status: Acute Comment: Per cardiology unlikely to be acute coronary event. However, pt. needs resting ECHO. This is still P. (2) Hyperlipidemia Status: Chronic Comment: Cont. 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 metformin for glucose levels in goal range (4) Essential (primary) hypertension Status: Chronic Comment: BP controlled. Cont. current BP regimen (5) Gastro-esophageal reflux disease without esophagitis Status: Chronic Comment: Cont. protonix (6) Swelling of right hand Status: Acute Comment: Plain radiograph of R hand (7) Traumatic subarachnoid hemorrhage Status: Acute Comment: Per neurosurgery, stable and does not require any intervention. Cleared by them for d/c home (8) Scalp laceration Status: Acute Comment: Does not require closure Cont'd Hospitalization Reason: Likely d/c tomorrow if ECHO (-) and hand XR (-). Subjective 24 Hr Interval Summary Constitutional: improved, no complaints Respiratory: no complaints Cardiovascular: lightheadedness Gastrointestinal: no complaints Genitourinary: no complaints Musculoskeletal: swelling (R hand post-trauma, associated w/ numbness but no pain) Skin: laceration (thinks might need to be closed w/ suture or naveen) Neurologic: No headache Psychological: nl mood/affect, no complaints Exam/Review of Systems Vital Signs Vitals VS - Last 72 Hours, by Label Date Time Temp Pulse Resp B/P Pulse Ox O2 Delivery O2 Flow Rate FiO2 11/30/16 12:18 56 11/30/16 11:25 98.0 57 19 111/54 98 11/30/16 08:20 60 11/30/16 07:15 98.4 63 19 120/79 97 11/30/16 04:34 60 11/30/16 04:00 98.3 62 15 123/58 96 11/30/16 00:33 54 11/30/16 00:00 98.1 61 15 125/60 98 11/29/16 21:05 66 11/29/16 20:28 Nasal Cannula 2.0 11/29/16 20:00 97.4 65 15 107/71 97 11/29/16 17:11 55 11/29/16 15:20 98.0 65 18 176/74 99 11/29/16 12:25 53 11/29/16 11:55 97.6 64 17 126/60 100 11/29/16 08:45 Nasal Cannula 2.0 11/29/16 08:22 56 11/29/16 07:41 98.2 59 18 124/60 98 11/29/16 04:27 50 11/29/16 04:09 97.7 54 20 99/53 100 11/29/16 00:32 97.7 75 20 198/90 100 Room Air 11/29/16 00:30 Nasal Cannula 2.0 11/29/16 00:29 73 11/28/16 23:39 73 18 142/72 99 Nasal Cannula 2.0 11/28/16 22:17 Nasal Cannula 2 11/28/16 21:57 71 18 165/77 97 Room Air 11/28/16 20:25 97.6 88 18 182/93 99 Vital Signs Date Time Temp Pulse Resp B/P Pulse Ox O2 Delivery O2 Flow Rate FiO2 11/30/16 12:18 56 11/30/16 11:25 98.0 19 111/54 98 11/29/16 20:28 Nasal Cannula 2.0 Intake and Output 11/29/16 11/29/16 11/30/16 15:00 23:00 07:00 Intake Total 2400 ml Balance 2400 ml Exam Constitutional: alert, oriented, well developed Psych: nl mood/affect, no complaints Respiratory: clear to auscultation, normal air movement Cardiovascular: edema (1+ BLE), nl pulses, regular rate and rhythm, No murmurs/extra sounds, No rub Gastrointestinal: bowel sounds, nl liver, spleen, non-tender, soft, No mass, No rebound or guarding Musculoskeletal: swelling (R hand, NTTP, small abrasions on knuckles) Extremities: edema (1+ BLE), normal pulses, No clubbing, No cyanosis Neurological: [employer] II-XII intact, nl mental status, nl speech, nl strength Skin: laceration (small on back of head, not bleeding, no intervention necessary) Additional Comments Bedside Glucose - 72 Hours Test 11/28/16 22:51 11/29/16 08:37 11/29/16 12:15 11/29/16 17:35 Bedside Glucose 133mg/dL (70-220) 160mg/dL (70-220) 161mg/dL (70-220) 139mg/dL (70-220) Test 11/29/16 21:29 11/30/16 07:56 11/30/16 12:04 Bedside Glucose 170mg/dL (70-220) 144mg/dL (70-220) 181mg/dL (70-220) Results Result Diagram: 11/29/16 0934 11/29/16 0934 Results 24 hrs Laboratory Tests Test 11/29/16 17:35 11/29/16 21:29 11/30/16 07:56 11/30/16 12:04 Bedside Glucose 139 170 144 181 Medications Medications Current Medications Clonidine 0.1 mg 0.1 mg Q4H PRN PO ELEVATED SYSTOLIC BP Last administered on 17:37; Admin Dose 0.1 MG; Start 11/29/16 at 01:00 Sodium Chloride (1/2 NS) 1,000 ml @ 75 mls/hr [id number] IV Last administered on 11/30/16 12:55; Admin Dose 75 MLS/HR; Start 11/29/16 at 01:15 Diagnostic Test (Pha) (Accu-Chek) 1 ea 02 XX ; Start 11/29/16 at 02:00 Miscellaneous Information 1 ea NOTE XX ; Start 11/29/16 at 01:20 Glucose (Glutose) 15 gm Q15M PRN PO DECREASED GLUCOSE; Start 11/29/16 at 01:20 Glucose (Glutose) 22.5 gm Q15M PRN PO DECREASED GLUCOSE; Start 11/29/16 at 01: 20 Dextrose (D50w Syringe) 25 ml Q15M PRN IV DECREASED GLUCOSE; Start 11/29/16 at 01:20 Dextrose (D50w Syringe) 50 ml Q15M PRN IV DECREASED GLUCOSE; Start 11/29/16 at 01:20 Glucagon (Glucagen) 1 mg Q15M PRN IM DECREASED GLUCOSE; Start 11/29/16 at 01:20 Glucose (Glutose) 15 gm Q15M PRN BUCCAL DECREASED GLUCOSE; Start 11/29/16 at 01 :20 Amlodipine Besylate (Norvasc) 2.5 mg DAILY PO ; Start 11/29/16 at 09:00 Atorvastatin Calcium (Lipitor) 10 mg HS PO Last administered on 11/29/16 21:27 ; Admin Dose 10 MG; Start 11/29/16 at 21:00 Furosemide (Lasix) 40 mg DAILY@06 PO Last administered on 11/30/16 06:25; Admin Dose 40 MG; Start 11/29/16 at 08:00 Pantoprazole (Protonix Tab) 40 mg DAILY@06 PO Last administered on 11/30/16 06 :25; Admin Dose 40 MG; Start 11/29/16 at 08:00 Guaifenesin/ Dextromethorphan (Robitussin Dm Liquid Cup) 5 ml Q4H PRN PO COUGH ; Start 11/29/16 at 16:00 Losartan Potassium (Cozaar) 100 mg DAILY PO Last administered on 11/30/16 08: 09; Admin Dose 100 MG; Start 11/30/16 at 09:00 Mometasone Furoate (Elocon 0.1 % Oint) 1 applic DAILY TOP ; Start 11/30/16 at 09 :00 Polyethyl Glycol/ Propylene Glycol (Systane) 1 drop QID PRN BOTH EYES DRY EYES ; Start 11/29/16 at 16:46 MILAGROS BERTRAND MD Nov 30, 2016 15:07
--- NOTE | 2016-11-30 15:17 | RADRPT ---
Echocardiogram Report Patient Name: MEDARDO MOYER Gender: Male Date: 1930 Study Date: 30-Nov-2016 Mill Representative: Leticia [facility] Location: [id number] Ref. Physician: MANISH SAMS Quality: Adequate Procedures: Transthoracic echocardiogram with complete 2D, M-Mode, and doppler examination. Indications: Elevated Troponin. 2D/M Mode Doppler Measurement Value Normal Ranges Measurement Value Normal Ranges LVIDd 2D 4.4 3.5 - 5.6 cm AV Peak Serge 1.6 m/sec LVIDs 2D 2.9 2.1 - 4.1 cm AV Peak PG 10.0 mmHg FS 2D 32.9 % LVOT Peak Serge 1.3 m/sec LVPWd 2D 1.3 0.6 - 1.1 cm LVOT Peak PG 7.0 mmHg IVSd 2D 1.3 0.6 - 1.1 cm MV E Peak Serge 0.7 m/sec IVS/LVPW 2D 1.0 MV A Peak Serge 0.9 m/sec AoR Diam 2D 3.1 2.0 - 3.7 cm MV E/A 0.8 LA/Ao 2D 1 0 - 1 MV Decel Time 218 msec EDV 2D 84.0 cm3 MV E/A 0.8 ESV 2D 25.4 cm3 TR Peak Serge 2.2 m/sec LA Dimen 2D 3.7 2.3 - 4.0 cm TR Peak PG 20.0 mmHg RVSP 23.0 mmHg Findings Left Ventricle: Normal left ventricular systolic function. Normal left ventricular cavity size. Mild concentric left ventricular hypertrophy. Ejection fraction is visually estimated at 60 %. Tissue Doppler/Mitral Doppler indices are consistent with impaired relaxation (Stage I diastolic dysfunction). Right Ventricle: Normal right ventricular size. Normal right ventricular systolic function. Left Atrium: The left atrium is normal in size. Right Atrium: The right atrium is normal in size. Mitral Valve: Mild mitral leaflet calcification. Mild mitral annular calcification. Trace mitral regurgitation. Aortic Valve: No hemodynamically significant aortic stenosis by doppler. Aortic cusps appear mildly calcified. Mild aortic valve regurgitation. Tricuspid Valve: Normal appearance of the tricuspid valve. Estimated peak PA systolic pressure 23 mmHg. There is mild tricuspid regurgitation. Pulmonic Valve: Pulmonic valve not well visualized. There is trace pulmonic regurgitation. Pericardium: Normal pericardium with no significant pericardial effusion. Aorta: Normal aortic root. IVC: Normal size and normal respiratory collapse consistent with normal right atrial pressure. Conclusions 1.Normal left ventricular systolic function. Normal left ventricular cavity size. Mild concentric left ventricular hypertrophy. Ejection fraction is visually estimated at 60 %. Tissue Doppler/Mitral Doppler indices are consistent with impaired relaxation (Stage I diastolic dysfunction). 2.No hemodynamically significant aortic stenosis by doppler. Aortic cusps appear mildly calcified. Mild aortic valve regurgitation. Electronically Signed By: Manish Sams 30-Nov-2016 15:16:57 -0700 Patient Name: MEDARDO MOYER Study Date: 30-Nov-2016 [id number]
--- NOTE | 2016-11-30 16:03 | CONS ---
Date/Time of Note Date/Time of Note DATE: 11/30/16 TIME: 15:59 Assessment/Plan Assessment/Plan Additional Assessment/Plan # Mechanical fall # Elevated troponin likely type II without evidence of acute coronary syndrome. Minimal elevation. Echo without wall motion abnl # HTN- with urgency # SAH s/p fall # DM >> stable cardiac status >> continue on cardiac meds >> RF management with statin, ARB, BP control >> consider ASA in future/when stable from SAH standpoint >> outpt follow up Consultation Date/Type/Reason Admit Date/Time Nov 28, 2016 at 22:19 Initial Consult Date 11/29/16 Type of Consultation: Cardiology 24 HR Interval Summary Free Text/Dictation Pt with R wrist swelling. No CP or SOB. Exam/Review of Systems Vital Signs Vitals Vital Signs Date Time Temp Pulse Resp B/P Pulse Ox O2 Delivery O2 Flow Rate FiO2 11/30/16 15:32 98.1 57 19 131/60 100 11/29/16 20:28 Nasal Cannula 2.0 Intake and Output 11/29/16 11/29/16 11/30/16 15:00 23:00 07:00 Intake Total 2400 ml Balance 2400 ml Exam Constitutional: alert, oriented, well developed Psych: no complaints Head: normocephalic ENMT: nl external ears & nose Neck: non-tender, supple, No jvd Respiratory: clear to auscultation, normal air movement Cardiovascular: nl pulses, regular rate and rhythm Gastrointestinal: nl liver, spleen, soft Extremities: normal pulses, tenderness Results Result Diagram: 11/29/16 0934 11/29/16 0934 Results 24 hrs Laboratory Tests Test 11/29/16 17:35 11/29/16 21:29 11/30/16 07:56 11/30/16 12:04 Bedside Glucose 139 170 144 181 Medications Medications Current Medications Clonidine 0.1 mg 0.1 mg Q4H PRN PO ELEVATED SYSTOLIC BP Last administered on 17:37; Admin Dose 0.1 MG; Start 11/29/16 at 01:00 Sodium Chloride (1/2 NS) 1,000 ml @ 75 mls/hr [id number] IV Last administered on 11/30/16 12:55; Admin Dose 75 MLS/HR; Start 11/29/16 at 01:15 Diagnostic Test (Pha) (Accu-Chek) 1 ea 02 XX ; Start 11/29/16 at 02:00 Miscellaneous Information 1 ea NOTE XX ; Start 11/29/16 at 01:20 Glucose (Glutose) 15 gm Q15M PRN PO DECREASED GLUCOSE; Start 11/29/16 at 01:20 Glucose (Glutose) 22.5 gm Q15M PRN PO DECREASED GLUCOSE; Start 11/29/16 at 01: 20 Dextrose (D50w Syringe) 25 ml Q15M PRN IV DECREASED GLUCOSE; Start 11/29/16 at 01:20 Dextrose (D50w Syringe) 50 ml Q15M PRN IV DECREASED GLUCOSE; Start 11/29/16 at 01:20 Glucagon (Glucagen) 1 mg Q15M PRN IM DECREASED GLUCOSE; Start 11/29/16 at 01:20 Glucose (Glutose) 15 gm Q15M PRN BUCCAL DECREASED GLUCOSE; Start 11/29/16 at 01 :20 Amlodipine Besylate (Norvasc) 2.5 mg DAILY PO ; Start 11/29/16 at 09:00 Atorvastatin Calcium (Lipitor) 10 mg HS PO Last administered on 11/29/16 21:27 ; Admin Dose 10 MG; Start 11/29/16 at 21:00 Furosemide (Lasix) 40 mg DAILY@06 PO Last administered on 11/30/16 06:25; Admin Dose 40 MG; Start 11/29/16 at 08:00 Pantoprazole (Protonix Tab) 40 mg DAILY@06 PO Last administered on 11/30/16 06 :25; Admin Dose 40 MG; Start 11/29/16 at 08:00 Guaifenesin/ Dextromethorphan (Robitussin Dm Liquid Cup) 5 ml Q4H PRN PO COUGH ; Start 11/29/16 at 16:00 Losartan Potassium (Cozaar) 100 mg DAILY PO Last administered on 11/30/16 08: 09; Admin Dose 100 MG; Start 11/30/16 at 09:00 Mometasone Furoate (Elocon 0.1 % Oint) 1 applic DAILY TOP ; Start 11/30/16 at 09 :00 Polyethyl Glycol/ Propylene Glycol (Systane) 1 drop QID PRN BOTH EYES DRY EYES ; Start 11/29/16 at 16:46 YANI SAMS MD Nov 30, 2016 16:03
[2016-11-30] MEDS: ATORVASTATIN 10 MG TAB PO SCH (20:42)
[2016-12-01] VITALS (7 sets, daily range): BP systolic 126–132; BP diastolic 59–61; PULSE 60–70; RESP 15–18
[2016-12-01] MEDS: ACCU-CHEK XX SCH (02:00)
--- NOTE | 2016-12-01 02:20 | RADRPT ---
PROCEDURE: XR Hand. CLINICAL INDICATION: Right hand pain. Injury. TECHNIQUE: Three views of the right hand were obtained. COMPARISON: No prior studies are available for comparison. FINDINGS: There is no evidence of acute fracture or dislocation. The joint spaces are maintained. Bony mineralization is normal. Mild soft tissue swelling over the dorsum of the hand. No radiopaque foreign body identified. IMPRESSION: 1. Mild soft tissue swelling over the dorsum of the hand. 2. No acute fracture or dislocation is seen. RPTAT: HLDM .Abel Toribio MD, MD Date Time Electronically viewed and signed by .Abel Toribio MD, on 12/01/2016 02:20 .M/
[2016-12-01] MEDS: FUROSEMIDE 40 MG TAB PO SCH (05:47)
[2016-12-01] MEDS: PANTOPRAZOLE (EC) 40 MG TAB PO SCH (05:47)
[2016-12-01] MEDS: SOD CHLORIDE 0.45% 1,000 ML IV SCH (05:47)
[2016-12-01] MEDS: INSULIN ASPART [NOVOLOG] 3 ML PEN SC SCH ×2 (07:55→12:13)
[2016-12-01] MEDS: LOSARTAN 50 MG TAB PO SCH (08:15)
[2016-12-01] MEDS: metFORMIN 500 MG TAB PO SCH ×2 (08:15→12:10)
[2016-12-01] MEDS: MOMETASONE 0.1% TOP SCH (08:18)
[2016-12-01] MEDS: AMLODIPINE 2.5 MG TAB PO SCH (08:19)
--- NOTE | 2016-12-01 10:02 | PDOCDIS ---
Discharge Instructions DIAGNOSIS Discharge Diagnosis Traumatic subarachnoid hemorrhage secondary to fall, Type II troponin elevation CONDITION Patient Condition: Good HOME CARE INSTRUCTIONS: Special Diet: 2000 RG, low-carb ACTIVITY: Activity Restrictions: Slowly Increase Activity Bathing Restrictions: Shower FOLLOW UP/APPOINTMENTS Follow-up Plan f/u w/ Dr. Segura 2 weeks at [facility] as scheduled MILAGROS BERTRAND MD Dec 01, 2016 10:02
--- NOTE | 2016-12-01 10:08 | DS ---
Date/Time of Note Date/Time of Note DATE: 12/01/16 TIME: 10:04 Discharge Summary Admission/Discharge Info Admit Date/Time Nov 28, 2016 at 22:19 Discharge Date/Time 12/01/2016 @ 1000 Discharge Diagnosis Traumatic subarachnoid hemorrhage secondary to fall, Type II troponin elevation Patient Condition: Good Consults Dr. Alexis: cardiology, Dr. Montano: neurosurgery Procedures ECHO: grade 1 diastolic dysfunction, Brain CT: subarachnoid hemorrhage, CT c-spine: cervical spine stenosis w/ some foraminal narrowing but no fracture Hospital Course 86 yowm w/ DM, htn, hld, and neuropathy who presents s/p a mechanical fall with a SAH. Called to see pt b/c mildly positive troponin (0.226 -> 0.159). ECG has no ischemic ST changes. Pt has no cp or sob. Do not suspect ACS. Troponin may be demand ischemia +/- autonomic dysregulation form his SAH. Would treat supportively (manage BP). Can check echo to evaluate EF and wall motion. (Stress test would not asset management lead at this time. Pt is obviously not a candidate for DAPT.) Home Meds Reported Medications Guaifenesin-Dextromethorphan* (Robitussin* DM) 100MG/10MG/5ML Syrup, 5 ML PO Q4H Y for COUGH, ML 11/29/16 Loperamide Hcl/Simethicone (IMODIUM MULTI-SYMPTOM REL CPLT) 1 Each Tablet, 1 EACH PO Y for DIARRHEA, TAB 11/29/16 Mometasone Furoate* (Mometasone Furoate* Oint) 0.1% - 45 Gm Oint..gm., 1 APPLIC TOP DAILY, #1 TUB 11/29/16 Ketoconazole* (Ketoconazole* 2% Cream (15gm)) 1 Applic Cr, 1 APPLIC TOP DAILY, TUB 11/29/16 Propylene Glycol-Peg 400 (Systane 0.3-0.4% Eye Drops) 0.3-0.4 % - 30 Ml Drops, 1 DROP BOTH EYES QID Y for DRY EYES, #1 BOTTLE 11/29/16 Aspirin* (Aspirin* EC) 81 Mg Tablet., 81 MG PO DAILY, TAB 11/28/16 Furosemide* (Furosemide*) 40 Mg Tablet, 40 MG PO DAILY, TAB 11/28/16 Losartan Potassium* (Losartan Potassium*) 100 Mg Tablet, 100 MG PO DAILY, TAB 11/28/16 Atorvastatin Calcium (Atorvastatin Calcium) 10 Mg Tablet, 10 MG PO QHS, #30 TAB 11/28/16 Pantoprazole* (Pantoprazole*) 40 Mg Tablet.dr, 40 MG PO DAILY, TAB 11/28/16 Amlodipine Besylate* (Amlodipine Besylate*) 2.5 Mg Tablet, 2.5 MG PO DAILY, #30 TAB 11/28/16 Metformin Hcl* (Metformin Hcl*) 500 Mg Tablet, 500 MG PO WITH MEALS BEDTIME, # 120 TAB qid 11/28/16 Discontinued Reported Medications Calcium (Calcium) 500 Mg Tablet 04/24/12 Aspirin (Kaley Child) 81 Mg Chew 04/24/12 Pantoprazole* (Protonix*) 20 Mg Tablet. 04/24/12 Atorvastatin (Lipitor) 10 Mg Tablet 04/24/12 Metformin* (Glucophage*) 500 Mg Tab 04/24/12 Lisinopril* (Zestril*) 5 Mg Tablet 04/24/12 Follow-up Plan f/u w/ Dr. Segura 2 weeks at scheduled CPE Primary Care Provider Bruno Segura MD Time spent on discharge: > 30 minutes Pending Labs Laboratory Tests Test 11/30/16 12:04 11/30/16 17:46 11/30/16 20:40 12/01/16 03:01 Bedside Glucose 181mg/dL (70-220) 92mg/dL (70-220) 219mg/dL (70-220) 115mg/dL (70-220) Test 12/01/16 08:07 Bedside Glucose 124mg/dL (70-220) MILAGROS BERTRAND MD Dec 01, 2016 10:08
== END 2016-12-01 14:50 | disposition home or self-care (01) | DRG 87 ==
LOC: E/R 20:17 → TEL 22:19
PROVIDERS: ADMIT Internal Medicine; ATTEND Internal Medicine
DX: S06.6X0A Traumatic subarachnoid hemorrhage without loss of consciousness, initial encounter (principal); G62.9 Polyneuropathy, unspecified; E11.9 Type 2 diabetes mellitus without complications; S01.01XA Laceration without foreign body of scalp, initial encounter; S70.01XA Contusion of right hip, initial encounter; I10 Essential (primary) hypertension; W10.9XXA Fall (on) (from) unspecified stairs and steps, initial encounter; Y92.009 Unspecified place in unspecified non-institutional (private) residence as the place of occurrence of the external cause; I16.0 Hypertensive urgency; E78.5 Hyperlipidemia, unspecified; K21.9 Gastro-esophageal reflux disease without esophagitis; M79.89 Other specified soft tissue disorders; R79.89 Other specified abnormal findings of blood chemistry; Z79.84 Long term (current) use of oral hypoglycemic drugs; Z79.82 Long term (current) use of aspirin; Z90.79 Acquired absence of other genital organ(s); Z91.81 History of falling; Z87.891 Personal history of nicotine dependence
CPT/HCPCS: 36415; 70450; 70496; 71010; 72125; 73500; 73510; 80048; 82550; 82553; 82962; 84484; 85025; 85610; 85730; 90471; 90715; 93005; 93306; 97162; J1815; Q9967